=== PATIENT | female | born 1945 | race Caucasian/White ===

== ENCOUNTER → 2016-10-27 | Outpatient (CLI) | payer MEDICARE ==
[2016-10-27 09:44] LABS: HEMATOCRIT 37.6 % (35.0-46.0); MEAN CELL VOLUME 85.2 FL (80.0-100.0); MEAN CORPUSCULAR HEMOGLOBIN 26.6 PG (27.0-34.0); MEAN CORPUSCULAR HGB CONC 31.3 % (32.0-36.0); PLATELET COUNT 250 TH/MM3 (150-450); RED BLOOD COUNT 4.41 MIL/MM3 (4.00-5.30); RED CELL DISTRIBUTION WIDTH 14.2 % (11.6-17.2); REVIEW FLAG FINAL; WHITE BLOOD COUNT 6.4 TH/MM3 (4.0-11.0)
[2016-10-27 13:17] LABS: ALT (GPT) 19 U/L (10-53); ANION GAP 8 MEQ/L (5-15); AST (GOT) 15 U/L (15-37); BICARBONATE 28.9 MEQ/L (21.0-32.0); BLOOD UREA NITROGEN 12 MG/DL (7-18); CHLORIDE 107 MEQ/L (98-107); GLOMERULAR FILTRATION RATE 63 ML/MIN (>89); GLUCOSE,FASTING 84 MG/DL (74-99); SODIUM (NA) 144 MEQ/L (136-145)
[2016-10-27 13:27] LABS: ALKALINE PHOSPHATASE 66 U/L (45-117); HDL CHOLESTEROL 71.3 MG/DL (40.0-60.0); LDL CHOLESTEROL 120 MG/DL (0-99); TOTAL BILIRUBIN ADULT 0.3 MG/DL (0.2-1.0)
== END ==
LOC: OLAB 09:28
PROVIDERS: ATTEND Family Medicine
DX: I10 Essential (primary) hypertension (principal); E78.5 Hyperlipidemia, unspecified; K21.9 Gastro-esophageal reflux disease without esophagitis; M81.0 Age-related osteoporosis without current pathological fracture; R06.89 Other abnormalities of breathing; G45.8 Other transient cerebral ischemic attacks and related syndromes; R20.9 Unspecified disturbances of skin sensation
CPT/HCPCS: 36415; 80053; 80061; 84443; 85027

== ENCOUNTER → 2017-09-28 | Outpatient (CLI) | payer MEDICARE ==
[2017-09-28 09:46] LABS: AUTOMATED NEUTROPHIL # 3.8 TH/MM3 (1.8-7.7); BASOPHIL % 0.5 % (0.0-2.0); EOSINOPHIL # 0.2 TH/MM3 (0-0.4); EOSINOPHIL % 3.1 % (0.0-4.0); HEMATOCRIT 37.5 % (35.0-46.0); HEMOGLOBIN 12.7 GM/DL (11.6-15.3); LYMPH % 34.7 % (9.0-44.0); LYMPHOCYTE # 2.3 TH/MM3 (1.0-4.8); MEAN CELL VOLUME 83.7 FL (80.0-100.0); MEAN CORPUSCULAR HEMOGLOBIN 28.3 PG (27.0-34.0); MEAN CORPUSCULAR HGB CONC 33.7 % (32.0-36.0); MONO % 5.2 % (0.0-8.0); MONOCYTE # 0.3 TH/MM3 (0-0.9); NEUT % 56.5 % (16.0-70.0); PLATELET COUNT 255 TH/MM3 (150-450); RED BLOOD COUNT 4.48 MIL/MM3 (4.00-5.30); RED CELL DISTRIBUTION WIDTH 13.9 % (11.6-17.2); WHITE BLOOD COUNT 6.6 TH/MM3 (4.0-11.0)
[2017-09-28 11:26] LABS: ALBUMIN 3.7 GM/DL (3.4-5.0); AST (GOT) 16 U/L (15-37); BICARBONATE 30.4 MEQ/L (21.0-32.0); BLOOD UREA NITROGEN 24 MG/DL (7-18); CALCIUM 9.3 MG/DL (8.5-10.1); CHLORIDE 105 MEQ/L (98-107); CHOLESTEROL 217 MG/DL (120-200); CREATININE 0.93 MG/DL (0.50-1.00); GLOMERULAR FILTRATION RATE 59 ML/MIN (>89); GLUCOSE,RANDOM 87 MG/DL (74-106); SODIUM (NA) 140 MEQ/L (136-145)
[2017-09-28 11:38] LABS: ALKALINE PHOSPHATASE 78 U/L (45-117); ALT (GPT) 28 U/L (10-53); CHOLESTEROL/ HDL RATIO 2.88 RATIO; HDL CHOLESTEROL 75.3 MG/DL (40.0-60.0); LDL CHOLESTEROL 122 MG/DL (0-99); TOTAL BILIRUBIN ADULT 0.4 MG/DL (0.2-1.0); TOTAL PROTEIN 7.1 GM/DL (6.4-8.2); TRIGLYCERIDES 100 MG/DL (42-150)
== END ==
LOC: OLAB 09:32
PROVIDERS: ATTEND Family Medicine
DX: E78.5 Hyperlipidemia, unspecified (principal); I10 Essential (primary) hypertension; K21.9 Gastro-esophageal reflux disease without esophagitis; M81.0 Age-related osteoporosis without current pathological fracture; G45.8 Other transient cerebral ischemic attacks and related syndromes; Z68.36 Body mass index [BMI] 36.0-36.9, adult
CPT/HCPCS: 36415; 80053; 80061; 84443; 85025

== ENCOUNTER → 2017-12-21 | Outpatient (CLI) | payer MEDICARE ==
[2017-12-21 09:43] LABS: BASOPHIL % 0.3 % (0.0-2.0); EOSINOPHIL # 0.1 TH/MM3 (0-0.4); EOSINOPHIL % 1.2 % (0.0-4.0); HEMOGLOBIN 12.1 GM/DL (11.6-15.3); LYMPH % 19.4 % (9.0-44.0); LYMPHOCYTE # 1.8 TH/MM3 (1.0-4.8); MEAN CELL VOLUME 84.2 FL (80.0-100.0); MEAN CORPUSCULAR HEMOGLOBIN 27.5 PG (27.0-34.0); MEAN CORPUSCULAR HGB CONC 32.7 % (32.0-36.0); MEAN PLATELET VOLUME 7.9 FL (7.0-11.0); MONO % 3.8 % (0.0-8.0); MONOCYTE # 0.4 TH/MM3 (0-0.9); NEUT % 75.3 % (16.0-70.0); PLATELET COUNT 244 TH/MM3 (150-450); RED BLOOD COUNT 4.39 MIL/MM3 (4.00-5.30); RED CELL DISTRIBUTION WIDTH 14.6 % (11.6-17.2); WHITE BLOOD COUNT 9.3 TH/MM3 (4.0-11.0)
[2017-12-21 13:53] LABS: ALBUMIN 3.7 GM/DL (3.4-5.0); AST (GOT) 20 U/L (15-37); BICARBONATE 27.6 MEQ/L (21.0-32.0); BLOOD UREA NITROGEN 17 MG/DL (7-18); CALCIUM 9.7 MG/DL (8.5-10.1); CHLORIDE 104 MEQ/L (98-107); CREATININE 0.94 MG/DL (0.50-1.00); GLOMERULAR FILTRATION RATE 59 ML/MIN (>89); GLUCOSE,FASTING 92 MG/DL (74-99); SODIUM (NA) 141 MEQ/L (136-145)
[2017-12-21 13:54] LABS: ALT (GPT) 30 U/L (10-53); CHOLESTEROL 203 MG/DL (120-200); TRIGLYCERIDES 90 MG/DL (42-150)
[2017-12-21 14:04] LABS: ALKALINE PHOSPHATASE 84 U/L (45-117); CHOLESTEROL/ HDL RATIO 2.89 RATIO; HDL CHOLESTEROL 70.1 MG/DL (40.0-60.0); LDL CHOLESTEROL 115 MG/DL (0-99); TOTAL BILIRUBIN ADULT 0.4 MG/DL (0.2-1.0); TOTAL PROTEIN 6.8 GM/DL (6.4-8.2)
== END ==
LOC: OLAB 09:19
PROVIDERS: ATTEND Family Medicine
DX: I10 Essential (primary) hypertension (principal); E78.2 Mixed hyperlipidemia
CPT/HCPCS: 36415; 80053; 80061; 84443; 85025